=== PATIENT | female | born 1990 | race Caucasian/White ===

== ENCOUNTER 2019-06-06 14:27 | Emergency (ER) | payer MEDICAID ==
[~2019-06-06] VITALS: Ht 167.6 cm; Wt 65.8 kg
[2019-06-06 14:38] VITALS: BP 125/77
== END 2019-06-06 17:26 | disposition home or self-care (01) ==
LOC: ER 14:28
DX: S86.812A Strain of other muscle(s) and tendon(s) at lower leg level, left leg, initial encounter (principal); S90.32XA Contusion of left foot, initial encounter; F17.200 Nicotine dependence, unspecified, uncomplicated; W22.8XXA Striking against or struck by other objects, initial encounter; Y93.89 Activity, other specified; Y92.89 Other specified places as the place of occurrence of the external cause; Y99.8 Other external cause status
CPT/HCPCS: 93971; 99284

== ENCOUNTER 2022-02-04 09:13 | Emergency (ER) | payer MEDICAID ==
[~2022-02-04] VITALS: Ht 167.6 cm; Wt 59.1 kg
--- NOTE | 2022-02-04 09:31 | NUR ---
Strong smell of ETOH on patient. Patient states she drank last night; denies drinking daily.
--- NOTE | 2022-02-04 10:00 | NUR ---
Patient refuses blood draw after thorough discussion with TEE Padgett; signed AMA form.
--- NOTE | 2022-02-04 10:16 | NUR ---
Patient speaking with when entering room with wheelchair to assist patient out of department. Patient states spouse wanted to speak with staff. Malcolm states patient is now willing to stay and get a full work up and be cooperative with staff. TEE Padgett made aware.
--- NOTE | 2022-02-04 10:34 | NUR ---
Patient to MRI via [employer] at this time.
[2022-02-04] MEDS ORDERED: NO HOME MEDS (11:11)
[2022-02-04 11:40] LABS: BASOPHILS # (AUTO) 0.1 X10'3 (0-0.2); EOSINOPHILS % (AUTO) 1.1 % (0-6); MEAN CORPUSCULAR HEMOGLOBIN 37.6 PG (27.0-31.0); MONOCYTES # (AUTO) 0.2 X10'3 (0-0.9); NEUTROPHILS # (AUTO) 2.2 X10'3 (1.8-7.7); RED CELL DISTRIBUTION WIDTH 13.8 % (11.5-14.5); WHITE BLOOD COUNT 3.5 X10'3 (4.5-11.0)
[2022-02-04 11:42] LABS: BASOPHILS % (AUTO) 2.3 % (0-1); HEMATOCRIT 38.7 % (35.0-45.0); HEMOGLOBIN 13.3 g/dl (12.0-16.0); LYMPHOCYTES % (AUTO) 27.6 % (21-51); MEAN CORPUSCULAR HGB CONC 34.4 g/dL (33.0-36.5); MEAN CORPUSCULAR VOLUME 109.2 FL (78-98); MEAN PLATELET VOLUME 8.1 FL (7.4-10.4); MONOCYTES % (AUTO) 6.1 % (2-12); NEUTROPHILS % (AUTO) 62.9 % (42-75); PLATELET COUNT 167 X10'3 (140-440); RED BLOOD COUNT 3.54 X10'6 (4.20-5.60)
[2022-02-04 11:45] LABS: ALANINE AMINOTRANSFERASE 103 U/L (12-78); ALBUMIN 4.1 G/DL (3.4-5.0); ALBUMIN/GLOBULIN RATIO 1.3 (1.1-1.5); ALKALINE PHOSPHATASE 62 IU/L (46-116); ANION GAP 17 (8-16); ASPARTATE AMINO TRANSFERASE 138 U/L (10-37); BILIRUBIN,TOTAL 0.7 MG/DL (0.1-1.0); BLOOD UREA NITROGEN 11 MG/DL (7-18); BUN/CREATININE RATIO 21.2 (6.6-38.0); CALCIUM 8.3 MG/DL (8.5-10.1); CHLORIDE 102 MMOL/L (99-107); CREATINE KINASE 233 U/L (26-192); CREATININE 0.52 MG/DL (0.40-0.90); ETHANOL 0.297 GM/DL (0.0-0.010); GLUCOSE 70 MG/DL (70-104); MAGNESIUM 1.7 MG/DL (1.5-2.4); PHOSPHORUS 4.3 MG/DL (2.3-4.5); POTASSIUM 3.9 MMOL/L (3.5-5.1); SODIUM 144 MMOL/L (135-145); TOTAL CARBON DIOXIDE 25.1 MMOL/L (24-32); TOTAL PROTEIN 7.2 G/DL (6.4-8.2); eGFR > 90 ML/MIN
[2022-02-04] MEDS ORDERED: normal saline 1000ML IV soln IVB ONE (12:00)
[2022-02-04 12:06] LABS: CLARITY,URINE CLEAR (Clear); COLOR,URINE YELLOW (Yellow); GLUCOSE, URINE NEGATIVE (Neg); KETONES,URINE 40 mg/dl (Neg); LEUKOCYTE ESTERASE ,URINE NEGATIVE (Neg); NITRITES, URINE NEGATIVE (Neg); OCCULT BLOOD,URINE LARGE (Neg); PROTEIN,URINE TRACE mg/dl (Neg); UROBILINOGEN,URINE 0.2 E.U/dL (0.2-1.0)
[2022-02-04 12:07] LABS: UA COLLECTION TYPE NON-SPECIFIED; URINE AMPHETAMINE SCREEN NEGATIVE (Neg); URINE BARBITUATE SCREEN NEGATIVE (Neg); URINE BENZODIAZEPINES SCREEN NEGATIVE (Neg); URINE CANNABINOID SCREEN NEGATIVE (Neg); URINE COCAINE SCREEN POSITIVE (Neg); URINE METHADONE SCREEN NEGATIVE (Neg); URINE OPIATE SCREEN NEGATIVE (Neg); URINE PHENCYCLIDINE SCREEN NEGATIVE (Neg)
[2022-02-04 12:23] LABS: MUCUS STRANDS MODERATE /LPF (Neg); RBC,URINE 50-100 /HPF (0-2); SQUAMOUS EPITHELIAL CELL,UR MANY /LPF (FEW)
[2022-02-04 12:24] LABS: BACTERIA,URINE 1+ /HPF (Neg)
[2022-02-04 12:25] LABS: WBC,URINE 0-4 /HPF (0-4)
[2022-02-04] MEDS: normal saline 500ml IV soln 500 ML IV SCH ×2 (12:45→15:04)
--- NOTE | 2022-02-04 14:55 | NUR ---
? Success A new connect request was successfully created for: LAVINIA PATRICK : 1990 ConnectID: [id number] REASON: Other Emergency ACUITY: Acuity Level 2 SUBMITTED: 02/04/2022 14:55 PDT
--- NOTE | 2022-02-04 18:22 | NUR ---
ASSUMED CARE OF PATIENT FROM [facility]. A=OX4. AWAITING LP
--- NOTE | 2022-02-04 20:19 | NUR ---
patient getting LP
[2022-02-04 21:13] LABS: GLUCOSE,CSF 38 MG/DL (40-75); TOTAL PROTEIN,CSF 67 MG/DL (15-45)
[2022-02-04 21:43] LABS: APPEARANCE,CSF CLEAR; CSF SUPERNATANT COLOR COLORLESS; CSF VOLUME 6.5 ML
--- NOTE | 2022-02-04 21:43 | NUR ---
PATIENT CONTINUES TO BE IN FLAT SUPINE POSITION AFTER LP.
[2022-02-04 21:44] LABS: CSF WBC CT 0 /CU MM (0-5); TUBE# COUNTED 1
[2022-02-04 21:48] LABS: CSF RBC 1 /CU MM (0)
[2022-02-04] MEDS ORDERED: thiamine 100mg/ml 2ml inj. IV ONE (22:55)
[2022-02-04] MEDS ORDERED: folic acid 1mg/0.2ml inj IV ONE (22:55)
--- NOTE | 2022-02-04 23:10 | NUR ---
PATIENT RESTING IN ROOM, NO C/O. WILL CONTINUE TO MONITOR. NO CHANGE
[2022-02-05] MEDS ORDERED: cyanocobalamin 1,000 mcg/ml inj IM ONE (00:05)
--- NOTE | 2022-02-05 00:29 | NUR ---
PATIENT HAD NEURO CONSULT, AWAITNG TRANSFER TO [facility].
--- NOTE | 2022-02-05 01:48 | NUR ---
ASLEEP IN ROOM, CHEST RISE AND FALL. AWAITING ROOM.
--- NOTE | 2022-02-05 03:20 | NUR ---
PATIENT ASLEEP IN ROOM, CHEST RISE AND FALL. AWAING ROOM AND ORDERS.
--- NOTE | 2022-02-05 04:40 | NUR ---
PATIENT ASLEEP IN ROOM, CHEST RISE AND FALL.
--- NOTE | 2022-02-05 06:12 | NUR ---
PATIENT ASLEEP IN ROOM, CHEST RISE AND FALL.
--- NOTE | 2022-02-05 07:30 | NUR ---
Ambulated pt to the restroom. Pt has strength but is unsteady. Stated that her legs are week.
--- NOTE | 2022-02-05 09:21 | NUR ---
Pt's is at the bedside.
[2022-02-05] MEDS ORDERED: IMMUNE GLOBULIN 10% IV SCH (11:52)
[2022-02-05 12:21] LABS: HCG SERUM QL NEGATIVE
[2022-02-05] MEDS ORDERED: iohexol 350MG/ML 100ml bottle IV ONE (12:24)
--- NOTE | 2022-02-05 12:34 | NUR ---
Spoke with Michelel from [facility] Transfer [facility].
[2022-02-05 12:48] VITALS: BP 136/90
--- NOTE | 2022-02-05 13:07 | NUR ---
Report called to TONE Jurado at [facility] ICU.
--- NOTE | 2022-02-05 13:50 | NUR ---
Report given to [facility] NurseJane.
== END 2022-02-05 13:55 | disposition short-term general hospital (02) ==
LOC: ER 09:13
DX: R53.1 Weakness (principal); R20.0 Anesthesia of skin; F10.129 Alcohol abuse with intoxication, unspecified; F17.210 Nicotine dependence, cigarettes, uncomplicated; Z20.822 Contact with and (suspected) exposure to COVID-19
CPT/HCPCS: 36415; 62270; 70450; 70496; 70498; 72141; 72146; 72148; 80053; 80305; 80320; 81001; 82550; 82607; 82945; 83605; 83735; 83874; 84100; 84157; 84703; 85025; 85651; 87015; 87070; 87635; 89051; 96361; 96365; 96366; 96372; 96375; 99285; C9803; J1459; J3411; J3420; J3490; J7030; J7040; Q9967

== ENCOUNTER → 2024-04-16 | Emergency (ER) | payer MEDICAID ==
[~2024-04-16] VITALS: Ht 167.6 cm; Wt 59.1 kg
[~2024-04-16] MED LIST: CefTRIAXone 500MG IM Kit w/LIDOcaine (for pt below or = to 150kg) IM ONE; LEVONORGESTREL 1.5MG tablet 1.5 MG TABLET PO ONE; NO HOME MEDS; TINIDAZOLE 500 MG TABLET PO ONE; azithromycin 250mg tablet PO ONE
[2024-04-16 10:26] VITALS: BP 127/69; PULSE 137; RESP 16; TEMP 98.6; O2SAT 95
== END | disposition home or self-care (01) ==
LOC: ER 10:25 → EEVIPCON 10:25
DX: S90.01XA Contusion of right ankle, initial encounter (principal); T71.9XXA Asphyxiation due to unspecified cause, initial encounter; T74.21XA Adult sexual abuse, confirmed, initial encounter; Y93.89 Activity, other specified; Y92.89 Other specified places as the place of occurrence of the external cause; Y99.8 Other external cause status
CPT/HCPCS: 71045; 73564; 99284

== ENCOUNTER 2024-06-10 11:57 | Emergency (ER) | payer MEDICAID ==
[~2024-06-10] VITALS: Ht 167.6 cm; Wt 55.7 kg
[~2024-06-10 11:57] MED LIST changes: -CefTRIAXone 500MG IM Kit w/LIDOcaine (for pt below or = to 150kg) IM ONE; -LEVONORGESTREL 1.5MG tablet 1.5 MG TABLET PO ONE; -TINIDAZOLE 500 MG TABLET PO ONE; -azithromycin 250mg tablet PO ONE
[2024-06-10] MEDS: dexamethasone 4mg tablet PO ONE (12:15)
[2024-06-10] MEDS: ketorolac trometh. 30mg/ml inj. IM ONE (12:16)
[2024-06-10 13:22] VITALS: BP 16/135; PULSE 85; RESP 16; TEMP 98.4; O2SAT 62
== END 2024-06-10 13:30 | disposition home or self-care (01) ==
LOC: ER 11:58
DX: M25.561 Pain in right knee (principal); F10.90 Alcohol use, unspecified, uncomplicated; Z86.718 Personal history of other venous thrombosis and embolism
CPT/HCPCS: 73562; 96372; 99283; J1885

== ENCOUNTER 2025-02-24 20:47 | Emergency (ER) | payer MEDICAID ==
[~2025-02-24] VITALS: Ht 167.6 cm; Wt 63.5 kg
[2025-02-24 21:10] VITALS: BP 133/84; PULSE 93; RESP 17; O2SAT 99
[2025-02-24] MEDS ORDERED: ACET-1008 PO (22:14)
[2025-02-24] MEDS ORDERED: IBUP-1985 PO (22:14)
[2025-02-24 22:15] VITALS: TEMP 98.4
== END 2025-02-24 22:16 | disposition home or self-care (01) ==
LOC: ER 20:48
DX: S39.011A Strain of muscle, fascia and tendon of abdomen, initial encounter (principal); F17.290 Nicotine dependence, other tobacco product, uncomplicated; X58.XXXA Exposure to other specified factors, initial encounter; Y93.72 Activity, wrestling; Y92.89 Other specified places as the place of occurrence of the external cause; Y99.8 Other external cause status
CPT/HCPCS: 99282